=== PATIENT | male | born 1995 | race Hispanic/Latino ===

== ENCOUNTER 2021-05-13 18:44 | Emergency (ER) | payer SELFPAY ==
[~2021-05-13] VITALS: Ht 182.9 cm; Wt 99.8 kg
[2021-05-13] MEDS ORDERED: ACETAMINOPHEN 325 MG TAB PO ONE (19:15)
== END 2021-05-13 19:20 | disposition home or self-care (01) ==
LOC: ER 19:06
DX: U07.1 COVID-19 (principal); R50.9 Fever, unspecified; R05.9 Cough, unspecified; M54.9 Dorsalgia, unspecified
CPT/HCPCS: 99282

== ENCOUNTER 2023-09-25 07:39 | Emergency (ER) | payer BC, SELFPAY ==
[~2023-09-25] VITALS: Ht 185.4 cm; Wt 109.3 kg
[2023-09-25 07:50] VITALS: O2SAT 97
[2023-09-25] MEDS ORDERED: CYCLOBENZAPRINE5 MG PO (09:54)
== END 2023-09-25 10:09 | disposition home or self-care (01) ==
LOC: FSED 07:54
DX: M54.2 Cervicalgia (principal); M54.6 Pain in thoracic spine; V43.52XA Car driver injured in collision with other type car in traffic accident, initial encounter; Y92.488 Other paved roadways as the place of occurrence of the external cause
CPT/HCPCS: 72072; 72125; 99283